=== PATIENT | female | born 1950 ===

== ENCOUNTER 2017-06-10 08:55 | Outpatient (CLI) | payer OTHER | END 2017-06-10 09:11 | disposition home or self-care (01) | LOC: MRI 08:55 | DX: G40.909 Epilepsy, unspecified, not intractable, without status epilepticus (principal) | CPT/HCPCS: 70551 ==

== ENCOUNTER 2022-05-18 08:07 | Outpatient (CLI) | payer OTHER | END 2022-05-18 08:09 | disposition home or self-care (01) | LOC: NUCLEAR 08:07 | DX: I73.9 Peripheral vascular disease, unspecified (principal); I87.2 Venous insufficiency (chronic) (peripheral) ==

== ENCOUNTER 2023-05-25 13:19 | Outpatient (CLI) | payer OTHER | END 2023-05-25 13:25 | disposition home or self-care (01) | LOC: RAD 13:19 | DX: M54.59 Other low back pain (principal) ==

== ENCOUNTER 2023-12-22 08:56 | Outpatient (CLI) | payer OTHER | END 2023-12-22 08:57 | disposition home or self-care (01) | LOC: NUCLEAR 08:56 | DX: I87.2 Venous insufficiency (chronic) (peripheral) (principal) ==